=== PATIENT | female | born 1970 | race Caucasian/White ===

== ENCOUNTER → 2019-10-31 10:46 | Outpatient (BNVA) | payer BC, SELFPAY | PROVIDERS: Family Provider Nurse Practitioner Family; PCP Nurse Practitioner Family; Visit Provider Counselor Professional | DX: F33.41 Major depressive disorder, recurrent, in partial remission (principal) | CPT/HCPCS: 90834 ==

== ENCOUNTER → 2019-12-05 11:01 | Outpatient (BNVA) | payer BC, SELFPAY | PROVIDERS: Family Provider Nurse Practitioner Family; PCP Nurse Practitioner Family; Visit Provider Nurse Practitioner | DX: F41.1 Generalized anxiety disorder (principal); F33.41 Major depressive disorder, recurrent, in partial remission | CPT/HCPCS: 99214 ==

== ENCOUNTER → 2019-12-06 12:44 | Outpatient (BNVA) | payer BC, SELFPAY | PROVIDERS: Family Provider Nurse Practitioner Family; PCP Nurse Practitioner Family; Visit Provider Counselor Professional | DX: F33.1 Major depressive disorder, recurrent, moderate (principal); F41.1 Generalized anxiety disorder | CPT/HCPCS: 90832; 90834 ==

== ENCOUNTER 2019-12-19 20:00 | Outpatient (CLI) | payer BC, SELFPAY | END 2019-12-19 20:01 | disposition home or self-care (01) | LOC: SLEEP 12-20 08:48 | PROVIDERS: Family Provider Nurse Practitioner Family; PCP Nurse Practitioner Family; Visit Provider Nurse Practitioner | DX: G47.10 Hypersomnia, unspecified (principal); R53.83 Other fatigue; R06.83 Snoring | CPT/HCPCS: 95810 ==

== ENCOUNTER → 2019-12-20 07:39 | Outpatient (BNVA) | payer BC, SELFPAY | PROVIDERS: Family Provider Nurse Practitioner Family; PCP Nurse Practitioner Family; Visit Provider Counselor Professional | DX: F33.1 Major depressive disorder, recurrent, moderate (principal) | CPT/HCPCS: 90832 ==

== ENCOUNTER → 2020-01-03 09:45 | Outpatient (BNVA) | payer BC, SELFPAY | PROVIDERS: Family Provider Nurse Practitioner Family; PCP Nurse Practitioner Family; Visit Provider Counselor Professional | DX: F41.1 Generalized anxiety disorder (principal); F33.41 Major depressive disorder, recurrent, in partial remission; F32.5 Major depressive disorder, single episode, in full remission | CPT/HCPCS: 90832 ==

== ENCOUNTER → 2020-02-06 07:55 | Outpatient (BNVA) | payer BC, SELFPAY | PROVIDERS: Family Provider Nurse Practitioner Family; PCP Nurse Practitioner Family; Visit Provider Nurse Practitioner | DX: F33.41 Major depressive disorder, recurrent, in partial remission (principal); F41.1 Generalized anxiety disorder | CPT/HCPCS: 99214 ==

== ENCOUNTER → 2020-02-27 08:45 | Outpatient (BNVA) | payer BC, SELFPAY | PROVIDERS: Family Provider Nurse Practitioner Family; PCP Nurse Practitioner Family; Visit Provider Counselor Professional | DX: F33.41 Major depressive disorder, recurrent, in partial remission (principal); F41.1 Generalized anxiety disorder | CPT/HCPCS: 90834 ==

== ENCOUNTER → 2020-03-20 08:28 | Outpatient (BNVA) | payer BC, SELFPAY | PROVIDERS: Family Provider Nurse Practitioner Family; PCP Nurse Practitioner Family; Visit Provider Counselor Professional | DX: F33.41 Major depressive disorder, recurrent, in partial remission (principal); F41.1 Generalized anxiety disorder | CPT/HCPCS: 90834 ==

== ENCOUNTER → 2020-04-09 07:36 | Outpatient (BNVA) | payer BC, SELFPAY | PROVIDERS: Family Provider Nurse Practitioner Family; PCP Nurse Practitioner Family; Visit Provider Nurse Practitioner | DX: F33.41 Major depressive disorder, recurrent, in partial remission (principal); F41.1 Generalized anxiety disorder | CPT/HCPCS: 99213 ==

== ENCOUNTER → 2020-06-27 09:12 | Outpatient (BNVA) | payer BC, SELFPAY | PROVIDERS: Family Provider Nurse Practitioner Family; PCP Nurse Practitioner Family; Visit Provider Counselor Professional | DX: F33.41 Major depressive disorder, recurrent, in partial remission (principal); F41.1 Generalized anxiety disorder | CPT/HCPCS: 90834 ==

== ENCOUNTER → 2020-07-03 09:09 | Outpatient (BNVA) | payer BC, SELFPAY | PROVIDERS: Family Provider Nurse Practitioner Family; PCP Nurse Practitioner Family; Visit Provider Nurse Practitioner | DX: F33.41 Major depressive disorder, recurrent, in partial remission (principal); F41.1 Generalized anxiety disorder; Z79.899 Other long term (current) drug therapy | CPT/HCPCS: 99214 ==

== ENCOUNTER → 2020-09-25 07:54 | Outpatient (BNVA) | payer BC, SELFPAY | PROVIDERS: Family Provider Nurse Practitioner Family; PCP Nurse Practitioner Family; Visit Provider Nurse Practitioner | DX: F33.41 Major depressive disorder, recurrent, in partial remission (principal); F41.1 Generalized anxiety disorder | CPT/HCPCS: 99214 ==

== ENCOUNTER → 2020-09-28 13:38 | Outpatient (BNVA) | payer BC, SELFPAY | PROVIDERS: PCP Nurse Practitioner Family; Visit Provider Surgery | DX: Z20.828 Contact with and (suspected) exposure to other viral communicable diseases (principal) | CPT/HCPCS: 87635 ==

== ENCOUNTER 2020-10-02 06:23 | Day surgery (SDC) | payer BC, SELFPAY ==
[2020-09-28 13:37] VITALS: BMI 28.9
[2020-10-02 06:49] VITALS: BP 150/99; PULSE 63; RESP 18; TEMP 36.2; O2SAT 98
--- NOTE | 2020-10-02 06:49 | P.HP_ITS ---
Same Day Surgery H&P Indication for Procedure/HPI DATE OF PROCEDURE: October 02, 2020 CHIEF COMPLAINT/INDICATIONFOR SURGICAL PROCEDURE: Screening colonoscopy PREOP DIAGNOSIS: Screening colonoscopy PLANNED PROCEDRUE: Operation Date: 10/02/20 07:00 Proposed Procedures p Colonoscopy 69712 z12.11(Not Applicable) - Rodrigo Elam MD This is a pleasant 50 years old female patient referred to me for surveillance colonoscopy, patient did report to me that she had a colonoscopy about 3 years ago and 8 polyps were removed. Denies any bleeding per rectum or history of colon cancer or nonintentional weight loss. ROS All systems have been reviewed negative except as per the above or per problem list Medications/Allergies* Home Medications Medication Instructions Recorded Confirmed Type cholecalciferol (vitamin D3) 100 4,000 unit PO DAILY 12/05/19 09/28/20 History mcg (4,000 unit) capsule glyburide 2.5 mg tablet 2.5 mg PO BID 12/05/19 09/28/20 History metformin 500 mg tablet 500 mg PO DAILY 12/05/19 09/28/20 History atorvastatin 40 mg tablet 40 mg PO DAILY 08/28/20 09/28/20 History gabapentin 100 mg capsule 100 mg PO DAILY 09/24/20 09/28/20 History Allergies/Adverse Reactions Allergy/AdvReac Type Severity Reaction Status Date / Time amoxicillin Allergy Unknown Verified 10/02/20 06:50 cefuroxime Allergy Unknown Verified 10/02/20 06:50 codeine Allergy Unknown Verified 10/02/20 06:50 erythromycin base Allergy Unknown Verified 10/02/20 06:50 Penicillins Allergy Unknown Verified 10/02/20 06:50 sulfamethoxazole Allergy Unknown Verified 10/02/20 06:50 [From Bactrim] trimethoprim [From Bactrim] Allergy Unknown Verified 10/02/20 06:50 Pertinent History/Comorbid Conditions* Medical History (Updated 07/03/20 @ 13:58 by María Naranjo [facility]) Generalized anxiety disorder Major depressive disorder, recurrent, in partial remission On high dose antipsychotic drug therapy Social History Smoking and tobacco status: current every day smoker cigarettes Packs smoked per day: 1 Smoking risk assessment/counseling performed?: Yes Tobacco counseling given: counseling >3 minutes Pertinent Exam Findings alert, oriented x 3, clear to auscultation bilaterally and procedure specific exam findings (Abdominal examination nontender nondistended soft) Recommendations Surgery/Procedure today (Colonoscopy with possible biopsy and possible polypectomy) Coding Level of Care Code Acute Veterinary X Ray Operator for Miguel Dasilva
[2020-10-02] MEDS: sodium chloride 0.9% 1,000 ML 30 ML IV (07:00)
--- NOTE | 2020-10-02 07:03 | ANES.PREANE2 ---
Pre-Anesthetic Assessment Pre-Anesthetic Assessment: Height/Weight: Height 1.52 m Weight 67.132 kg Temp Pulse Resp BP Pulse Ox 97.2 F L 63 18 150/99 98 10/02/20 06:49 10/02/20 06:49 10/02/20 06:49 10/02/20 06:49 10/02/20 06:49 Preop Diagnosis: Screening colonoscopy Proposed Procedure: Operation Date: 10/02/20 07:00 Proposed Procedures p Colonoscopy 14066 z12.11(Not Applicable) - Rodrigo Elam MD Familial anesthetic complications: denies Was Beta Sabine taken within 24 hours: N/A Last intake: Intake Last Liquid Date 10/01/20 Last Liquid Time 22:30 Last Solid Date 09/30/20 Last Solid Time 20:00 Last Intake: 01:01 Social: Social History: Tobacco and No alcohol Packs per day: 1.5 Exam: Pre-Anes Outpt Exam: alert, oriented x 3 and clear to auscultation bilaterally Airway: Submandibular: WNL Cervical ROM: WNL MP: 2 Dentition: Other (endentulous ) Pulmonary: Pulmonary: Asthma and COPD CV/HEM: CV/HEM: None reported : : None reported Hepatic: Hepatic: Hepatitis and None reported GI: GI: None reported Metabolic: Metabolic: DM (NIDDM) Musc/skel: Musc/skel: None reported Neuropsych: Neuropsych: Anxiety and Depression Anesthetic Plan: ASA status: 3 Anesthesia: Anesthesia Evaluation and MAC Meds/Allergies Current Medications: Current Medications Generic Name Dose Route Start Last Admin Trade Name Freq PRN Reason Stop Dose Admin Sodium Chloride 1,000 mls @ 30 ml s/hr 10/02/20 07:00 10/02/20 07:00 Sodium Chloride 0.9% IV 30 mls/hr .Q24H PÉREZ Administration PFSH Anesthesia PFSH: Medical History (Updated 07/03/20 @ 13:58 by ARASH Castillo) Generalized anxiety disorder Major depressive disorder, recurrent, in partial remission On high dose antipsychotic drug therapy Social History (Updated 12/05/19 @ 11:10 by Elizabeth Tenorio LPN) Smoking and tobacco status: current every day smoker cigarettes Packs smoked per day: 1 Smoking risk assessment/counseling performed?: Yes Tobacco counseling given: counseling >3 minutes Data Anesthesia Cardiac Studies: No Data to Display
[2020-10-02 07:51] VITALS: BP 110/72; PULSE 67; RESP 18; TEMP 36.1; O2SAT 97
--- NOTE | 2020-10-02 07:52 | ANE.PACU2 ---
Inpatient post-anesthesia follow up: Airway intact: Yes Vital signs: Temperature 97.2 F Pulse Rate 63 Respiratory Rate 18 Blood Pressure 150/99 Pulse Oximetry 98 Oxygen Delivery Me thod Room Air Oxygen Flow Rate Fraction of Inspir ed Oxygen Hydration adequate: Yes Nausea and vomiting: No Pain level: 0 Mental status: Baseline
[2020-10-02 08:10] VITALS: BP 129/79; PULSE 65; RESP 18; O2SAT 97
== END 2020-10-02 08:23 | disposition home or self-care (01) ==
PROVIDERS: PCP Nurse Practitioner Family; Visit Provider Surgery
PROC: 0DJD8ZZ Inspection of Lower Intestinal Tract, Via Natural or Artificial Opening Endoscopic (ICD-10-PCS; CPT 45378; principal; 2020-10-02 07:00)
DX: Z12.11 Encounter for screening for malignant neoplasm of colon (principal); D12.2 Benign neoplasm of ascending colon; D12.5 Benign neoplasm of sigmoid colon; J44.9 Chronic obstructive pulmonary disease, unspecified; E11.9 Type 2 diabetes mellitus without complications; F17.210 Nicotine dependence, cigarettes, uncomplicated; Z79.84 Long term (current) use of oral hypoglycemic drugs; F41.9 Anxiety disorder, unspecified; F33.9 Major depressive disorder, recurrent, unspecified
CPT/HCPCS: 12345; 45380; 88305; J2704; J7030

== ENCOUNTER → 2020-11-27 09:34 | Outpatient (BNVA) | payer BC, SELFPAY | PROVIDERS: PCP Nurse Practitioner Family; Visit Provider Nurse Practitioner | DX: F33.41 Major depressive disorder, recurrent, in partial remission (principal); F41.1 Generalized anxiety disorder | CPT/HCPCS: 99214 ==

== ENCOUNTER → 2021-01-08 13:52 | Outpatient (BNVA) | payer BC, SELFPAY | PROVIDERS: Visit Provider Surgery | DX: K21.9 Gastro-esophageal reflux disease without esophagitis (principal); Z20.822 Contact with and (suspected) exposure to COVID-19 | CPT/HCPCS: 87635 ==

== ENCOUNTER 2021-01-14 06:03 | Day surgery (SDC) | payer BC, SELFPAY ==
[2021-01-10 13:12] VITALS: BMI 28.5
[2021-01-14 06:20] VITALS: BP 136/88; PULSE 61; RESP 16; TEMP 36.5; O2SAT 98
--- NOTE | 2021-01-14 06:23 | W.PM.OPSUD ---
Surgery/Procedure H&P Update DATE OF PROCEDURE: January 14, 2021 DATE H&P PERFORMED: 12/26/20 H&P UPDATE INFORMATION: I have reviewed H&P completed within last 30 days, I have examined patient prior to procedure and No changes to prior documentation PREOP DIAGNOSIS: Acid reflux PRIMARY INDICATION FOR PROCEDURE: The same PLANNED PROCEDURE: Operation Date: 01/14/21 07:00 Proposed Procedures p EGD 43628 K21.9(Not Applicable) - Rodrigo Elam MD
[2021-01-14 06:37] LABS: Glucose Point of Care 94 mg/dL (70-110)
[2021-01-14] MEDS: sodium chloride 0.9% 1,000 ML 30 ML IV (06:38)
--- NOTE | 2021-01-14 06:39 | ANES.PREANE2 ---
Pre-Anesthetic Assessment Pre-Anesthetic Assessment: Height/Weight: Height 1.52 m Weight 66.224 kg Temp Pulse Resp BP Pulse Ox 97.7 F 61 16 136/88 98 01/14/21 06:20 01/14/21 06:20 01/14/21 06:20 01/14/21 06:20 01/14/21 06:20 Preop Diagnosis: Acid reflux Proposed Procedure: Operation Date: 01/14/21 07:00 Proposed Procedures p EGD 38352 K21.9(Not Applicable) - Rodrigo Elam MD Was Beta Sabine taken within 24 hours: N/A Was Clonidine taken within 24 hours: N/A Last intake: Intake Last Liquid Date 01/14/21 Last Liquid Time 01:00 Last Solid Date 01/13/21 Last Solid Time 20:00 Social: Social History: Tobacco Exam: Pre-Anes Outpt Exam: alert, oriented x 3, clear to auscultation bilaterally and regular rate & rhythm Airway: Submandibular: WNL Cervical ROM: WNL MP: 2 Dentition: False History/ROS: No significant history except as noted Pulmonary: Pulmonary: Asthma and COPD CV/HEM: CV/HEM: HTN : : None reported Hepatic: Hepatic: Hepatitis GI: GI: GERD and Hiatus hernia Metabolic: Metabolic: DM and Hyperlipidemia Musc/skel: Musc/skel: None reported Neuropsych: Neuropsych: Anxiety and Depression Anesthetic Plan: ASA status: 3 Anesthesia: Anesthesia Evaluation and MAC Risk of > 500 ml blood loss (7ml/kg in children): No Meds/Allergies Current Medications: Current Medications Generic Name Dose Route Start Last Admin Trade Name Freq PRN Reason Stop Dose Admin Sodium Chloride 1,000 mls @ 30 ml s/hr 01/14/21 06:15 01/14/21 06:38 Sodium Chloride 0.9% IV 30 mls/hr .Q24H PÉREZ Administration PFSH Anesthesia PFSH: Medical History Generalized anxiety disorder Major depressive disorder, recurrent, in partial remission On high dose antipsychotic drug therapy Social History Smoking and tobacco status: current every day smoker cigarettes Packs smoked per day: 1 Smoking risk assessment/counseling performed?: Yes Tobacco counseling given: counseling >3 minutes Data Anesthesia Other Labs: Laboratory Results - last 48 hr 01/14/21 06:35 POC Glucose 94 Cardiac Studies: No Data to Display
[2021-01-14 07:01] VITALS: BP 114/79; PULSE 68; RESP 18; TEMP 36.2; O2SAT 95
[2021-01-14 07:17] VITALS: BP 128/91; PULSE 70; RESP 18; O2SAT 93
--- NOTE | 2021-01-14 18:55 | ANE.PACU2 ---
Inpatient post-anesthesia follow up: Airway intact: Yes Vital signs: Temperature 97.2 F Pulse Rate 70 Respiratory Rate 18 Blood Pressure 128/91 Pulse Oximetry 93 Oxygen Delivery Me thod Room Air Oxygen Flow Rate Fraction of Inspir ed Oxygen Hydration adequate: Yes Nausea and vomiting: No Pain level: 1 Mental status: Baseline
[2021-01-15 06:19] LABS: H. Pylori / CLO Test Negative
== END 2021-01-14 07:32 | disposition home or self-care (01) ==
PROVIDERS: Visit Provider Surgery
PROC: 0DJ08ZZ Inspection of Upper Intestinal Tract, Via Natural or Artificial Opening Endoscopic (ICD-10-PCS; CPT 43235; principal; 2021-01-14 07:00)
DX: K21.00 Gastro-esophageal reflux disease with esophagitis, without bleeding (principal); K29.70 Gastritis, unspecified, without bleeding; K29.80 Duodenitis without bleeding; F17.210 Nicotine dependence, cigarettes, uncomplicated; J44.9 Chronic obstructive pulmonary disease, unspecified; I10 Essential (primary) hypertension; E11.9 Type 2 diabetes mellitus without complications; E78.5 Hyperlipidemia, unspecified; F41.9 Anxiety disorder, unspecified; F32.9 Major depressive disorder, single episode, unspecified; Z79.84 Long term (current) use of oral hypoglycemic drugs
CPT/HCPCS: 36416; 43239; 82962; 87077; 96360; J7030

== ENCOUNTER 2021-02-19 12:49 | Outpatient (CLI) | payer BC, SELFPAY ==
--- NOTE | 2021-02-19 14:30 | CT_ITS ---
WS: [id number] Exam: CT abdomen pelvis w con* [id number] Date/Time of Exam: 02/19/2021 1:10 PM Reason For Exam: R19.00 - Intra-abdominal and pelvic swelling, mass and lump, unspecified site DLP: 1133.[address] scans at [facility] use at least one of these dose optimization techniques: automat ed exposure control; mA and/or kV adjustment per patient size (includes targeted exams where dose is matched to clinical indication); or iterative reconstruction. 100 mL of non-ionic contrast are admini stered intravenously. Mild plaque atelectasis in the right base. Lower lung zones are otherwise clear. Mild hepatic steatos is. The spleen, stomach and pancreas appear normal. The gallbladder is surgically absent. The abdomin al aorta is normal in caliber. The portal vein and IVC are patent. Normal adrenal glands and kidneys. Small bowel loops are normal in caliber. No free air. No lymphadenopathy. No significant large bowel abnormality. No sign of acute appendix. Urinary bladder is intact. No mass or adenopathy in the pelv is. Uterus and ovaries are not identified and may be surgically absent. No destructive bone lesions. Small fat filled bilateral inguinal hernias. CT/CT abdomen pelvis w con* [id number] IMPRESSION: 1. No mass, lymphadenopathy or acute finding. 2. Small fat filled bilateral inguinal hernias.
[2021-02-19] MEDS: iohexol 300 mg/mL 100 mL Btl IV (14:36)
[2021-02-19] MEDS: iohexol 300 mg/mL 50 mL Btl PO (14:37)
== END 2021-02-19 12:50 | disposition home or self-care (01) ==
PROVIDERS: Visit Provider Surgery
DX: R19.00 Intra-abdominal and pelvic swelling, mass and lump, unspecified site (principal); K40.20 Bilateral inguinal hernia, without obstruction or gangrene, not specified as recurrent
CPT/HCPCS: 74177; Q9967

== ENCOUNTER 2021-03-10 17:27 | Emergency (ER) | payer BC, SELFPAY ==
[2021-03-10 17:36] VITALS: BP 130/69; PULSE 70; RESP 17; TEMP 36.5; O2SAT 97; BMI 28.5
--- NOTE | 2021-03-10 17:58 | W.ED.ABDPA2 ---
HPI - Abdominal Pain General: Chief Complaint: Abdominal Pain Stated Complaint: LOWER ABD PAIN Time Seen by Provider: 03/10/21 17:51 History of Present Illness: HPI narrative: Patient states she is having some tenderness across the lower abdomen where she has [address] Fields said he is going repair next week or 2. She denies any diarrhea nausea and vomiting fever chills or other related problems. She said she was not given any pain medicine and she feels that would help. MD elicited complaint: other (Hernia pain) Onset (ago): day(s) Pain Consistency: intermittent Location: Suprapubic Severity: mild Quality: aching Radiation: none Migration to: no migration Exacerbating factors: nothing Relieving factors: nothing Associated Symptoms: Reports no associated symptoms; Denies chills, fever(s), nausea and vomiting Review of Systems Const: Denies: fever(s), chills or body aches Eyes: Denies: change in vision or blurry vision ENMT: Denies: throat pain or nasal congestion Card: Denies: chest pain or dyspnea on exertion Resp: Denies: dyspnea, productive cough or non-productive cough GI: Reports: abdominal pain (Hernias are hurting); Denies: nausea or vomiting Musc: Denies: extremity pain Skin/Breast: Denies: rash Neuro: Denies: headache(s) Psych: Denies: anxiety or depression Seferino/Lymph: Denies: easy bruising PFSH ED PFSH: Medical History Gastritis and duodenitis Generalized anxiety disorder Major depressive disorder, recurrent, in partial remission On high dose antipsychotic drug therapy Social History Smoking and tobacco status: current every day smoker cigarettes Packs smoked per day: 1 Smoking risk assessment/counseling performed?: Yes Tobacco counseling given: counseling >3 minutes Physical Exam Const: COMMON NORMALS: no acute distress, average body habitus and patient oriented x3 HENMT: COMMON NORMALS: normocephalic HEAD & SCALP: normal to inspection and normocephalic FACE & SINUS: normal facial exam Eye: COMMON NORMALS: conjunctivae normal GENERAL EYE: appearance normal, both eyes and all related structures CONJUNCTIVA: Yes conjunctivae normal Neck/C-Spine: COMMON NORMALS: no JVD Chest: COMMONS NORMALS: normal inspection of the chest Resp: COMMON NORMALS: normal respiratory effort and clear to auscultation bilaterally AUSCULTATION: clear to auscultation bilaterally Cardio: COMMON NORMALS: no JVD, regular rate and regular rhythm RATE: regular rate RHYTHM: regular rhythm GI: INSPECTION: Yes normal to inspection and Yes other (I did not feel any hernias but she does have abdominal wall tenderness down) AUSCULTATION: Yes normoactive bowel sounds PALPATION: Yes Tenderness to palpation present (GI) (Suprapubic area where she says hernias are) Details: other (Slight redness of the matt) Extremity: COMMON NORMALS: normal to inspection and full ROM Neuro: COMMON NORMALS: patient oriented x3 Course Vital Signs: Vital signs: Vital Signs Temperature 97.7 F 03/10/21 17:36 Pulse Rate 72 03/10/21 18:38 Respiratory Rate 17 03/10/21 17:36 Blood Pressure 118/72 03/10/21 18:38 Pulse Oximetry 95 03/10/21 18:38 MDM - Abdominal Pain MDM Narrative: Medical decision making narrative: Abdomen with tenderness superficially along the abdominal wall. No hernias were felt by me. Bowel sounds are normal no fever erythema or or other related problems bowels are working fine. Most likely abdominal wall strain or pain related to the 3 urine is she says she has she is to follow-up Dr. Fields. Her hernias if they are there did not Appear incarcerated Discharge Plan Discharge Patient Disposition: Home Clinical Impression: Strain of abdominal muscle Qualifiers: Encounter type: initial encounter Qualified Code(s): S39.011A - Strain of muscle, fascia and tendon of abdomen, initial encounter Condition: Stable Prescriptions: New tramadol 50 mg tablet 50 mg PO TID PRN (Reason: pain) Qty: 14 RF: 0 No Action cholecalciferol (vitamin D3) 4,000 unit capsule 4,000 unit PO DAILY RF: 0 metformin 500 mg tablet 500 mg PO DAILY RF: 0 glyburide 2.5 mg tablet 2.5 mg PO BID RF: 0 gabapentin 100 mg capsule 100 mg PO DAILY RF: 0 atorvastatin 40 mg tablet 40 mg PO DAILY RF: 0 fluoxetine [Prozac] 40 mg capsule 80 mg PO DAILY Qty: 60 RF: 2 buspirone 15 mg tablet 15 mg PO TID Qty: 90 RF: 2 olanzapine 10 mg tablet 5 mg PO .HS RF: 0 bupropion HCl 75 mg tablet 25 mg PO DAILY RF: 0 Protonix 40 mg tablet,delayed release (DR/EC) 40 mg PO DAILY 30 Days Qty: 30 RF: 2 Discharge Orders: Discharge ED (Routine); Ordered 03/10/21 Ordered By: Marcos Luo Referrals: Alma Paulino [Primary Care Provider] - Discharge Diet: As Directed Discharge Activity: Resume usual activity Patient Instructions: Opioid Safety Activity Restrictions/Additional Instructions: Follow-up with medical provider as directed. Take medications as prescribed. Return to the ER or your medical provider if condition worsens. Please read and understand discharge instructions. If any questions ask please. Increase fiber in diet. Follow-up surgeon as directed. Coding Level of Care Code ED Java Golden Gate Developer for Miguel Dasilva Exam Comprehensive
[2021-03-10 18:34] VITALS: BP 118/72; PULSE 72; O2SAT 95
[2021-03-10 18:38] VITALS: BP 118/72; PULSE 72; O2SAT 95
== END 2021-03-10 18:39 | disposition home or self-care (01) ==
PROVIDERS: Emergency Provider Nurse Practitioner Family; PCP Nurse Practitioner Family
DX: S39.011A Strain of muscle, fascia and tendon of abdomen, initial encounter (principal); Z79.84 Long term (current) use of oral hypoglycemic drugs; F17.210 Nicotine dependence, cigarettes, uncomplicated; X58.XXXA Exposure to other specified factors, initial encounter
CPT/HCPCS: 99282

== ENCOUNTER 2021-03-26 08:49 | Day surgery (SDC) | payer BC, SELFPAY ==
[2021-03-22 16:32] VITALS: BMI 28.3
[2021-03-23 13:42] LABS: Quest SARS-CoV-2 RNA NOT DETECTED (NOT DETECTED)
[2021-03-26] VITALS (7 sets, daily range): BP systolic 103–122; BP diastolic 54–74; PULSE 66–86; RESP 12–22; TEMP 36.3–36.5; O2SAT 94–100
[2021-03-26] MEDS: acetaminophen 1,000 MG/100 ML PIGGYBACK 400 MG IV (09:20)
[2021-03-26 09:25] LABS: Glucose Point of Care 135 mg/dL (70-110)
[2021-03-26] MEDS: sodium chloride 0.9% 1,000 ML 30 ML IV (09:26)
--- NOTE | 2021-03-26 10:46 | ANES.PREANE2 ---
Pre-Anesthetic Assessment Pre-Anesthetic Assessment: Height/Weight: Height 1.52 m Weight 65.771 kg Preop Diagnosis: Bilateral inguinal hernias Proposed Procedure: Operation Date: 03/26/21 10:10 Proposed Procedures p Laparoscopic poss Open Inguinal Hernia Repair w/Mesh 24389 K40.20(Bilateral) - Rodrigo Elam MD Was Beta Sabine taken within 24 hours: N/A Was Clonidine taken within 24 hours: N/A Last intake: Intake Last Liquid Date 03/25/21 Last Liquid Time 11:30 Last Solid Date 03/25/21 Last Solid Time 17:00 Social: Social History: Tobacco (quit 2 wks ago) and No alcohol Exam: Pre-Anes Outpt Exam: alert, oriented x 3 and regular rate & rhythm Airway: Submandibular: WNL Cervical ROM: WNL MP: 2 Dentition: False Pulmonary: Pulmonary: COPD GI: GI: GERD Metabolic: Metabolic: DM Neuropsych: Neuropsych: Anxiety and Depression Anesthetic Plan: ASA status: 3 Anesthesia: General Risk of > 500 ml blood loss (7ml/kg in children): No Meds/Allergies Current Medications: Current Medications Generic Name Dose Route Start Last Admin Trade Name Freq PRN Reason Stop Dose Admin Sodium Chloride 1,000 mls @ 30 ml s/hr 03/26/21 09:15 03/26/21 09:26 Sodium Chloride 0.9% IV 03/27/21 09:14 30 mls/hr .Q24H PÉREZ Administration PFSH Anesthesia PFSH: Medical History Gastritis and duodenitis Generalized anxiety disorder Major depressive disorder, recurrent, in partial remission On high dose antipsychotic drug therapy Social History Smoking and tobacco status: current every day smoker cigarettes Packs smoked per day: 1 Smoking risk assessment/counseling performed?: Yes Tobacco counseling given: counseling >3 minutes Data Anesthesia Other Labs: Laboratory Results - last 48 hr 03/26/21 09:22 POC Glucose 135 H Cardiac Studies: No Data to Display
--- NOTE | 2021-03-26 12:06 | W.PM.OPSUD ---
Surgery/Procedure H&P Update DATE OF PROCEDURE: March 26, 2021 DATE H&P PERFORMED: 03/13/21 H&P UPDATE INFORMATION: I have reviewed H&P completed within last 30 days, I have examined patient prior to procedure and No changes to prior documentation PREOP DIAGNOSIS: Recurrent Bilateral inguinal hernias PRIMARY INDICATION FOR PROCEDURE: The same PLANNED PROCEDURE: Operation Date: 03/26/21 10:10 Proposed Procedures p Laparoscopic poss Open Inguinal Hernia Repair w/Mesh 13437 K40.20(Bilateral) - Rodrigo Elam MD
[2021-03-26] MEDS: clindamycin 600 MG/50 ML PREMIX 100 MG IV (12:16)
--- NOTE | 2021-03-26 13:46 | P.OP_ITS ---
Operative Report Date of procedure: March 26, 2021 Pre-op Diagnosis: Recurrent Bilateral inguinal hernias Post-op diagnosis: other (Extensive intra-abdominal adhesions and presence of right small inguinal hernia) Procedure Done: Laparoscopic converted to right open inguinal hernia repair with mesh placement in the form of a cone Implants: Polypropylene cone plug placement located at the medial aspect of the inguinal canal Specimens removed/disposition: Lipoma of the cord Surgeon: Rodrigo Elam Paintings Conservator: Surgical kevon Johnson Circulating nurse Nubia Anesthesia: General (CULLEN Wells and CORIE Scott) Estimated blood loss (mL): 10 Condition: stable Disposition: same day Brief History: Patient presents with symptomatic bilateral groin pain and was found to have on the CT scan recurrent bilateral inguinal hernias right larger than the left. Full H&P and informed consent per chart Procedure: Patient was identified in the holding area ,patient was taken to the operating room where he was placed in supine position, with both arms were tucked, antibiotic was given with induction, endotracheal tube was placed per anesthesia, Wiley catheter was inserted by the circulating nurse and revealed clear urine, prep and drape of the abdomen was done under the usual sterile technique. Time-out was done verifying the patient's name/date of /planned procedure destination after the procedure, all were in agreement. SCDs confirmed to be functioning, preoperative antibiotics administered per protocol, and beta meli protocol was confirmed. A vertical skin incision of 1.2 cm was made with 11 blade knife through the supraumbilical,incision was carried down to the subcutaneous tissue and deepened to identify the anterior fascia, two stay sutures were applied to the fascia, and safe entrance to the abdominal cavity was achieved, a Horton trocar te chnique safe entry to the abdominal cavity was achieved verified by using 10 mm zero degree laparoscopy, switched to a 30 degrees scope,low flow followed by a higher flow of CO2 gas up to 15 mmHg. At this point extensive intra-abdominal omental adhesions were appreciated and there was only small window to appreciate right small inguinal hernia. At this point I decided to abort and pay attention to open approach of the right inguinal hernia, the fascial defect was closed after gas deflation under direct visualization using interrupted [id number] PDS. Following that a right groin incision 1-1/2 finger above the inguinal ligament towards the pubic tubercle, used 15 blade knife skin incision , continued to dissect using Bovie to subcutaneous, Elysia's fascia down to the external obliqu e aponeurosis, patient had extensive scarring of the right groin area and the anatomy was completely distorted after appropriate dissection I was able to identify a large sized lipoma of the cord that was excised after appropriate hemostasis leaving behind a defect less than an in diameter located at the medial aspect which I managed to apply a Plug cone medium size made of polypropylene and using multiple 2-0 silk to stabilize it. Otherwise the lateral domain of the inguinal hernia was scarred down and the previous mesh has been already in place without evidence of infection. Copious irrigation was done following by closure of the external oblique aponeurosis using 2/0 continuous Vicryl sutures then closure of the subcutaneous and deep subdermal by 2-0 Vicryl and 3-0 Vicryl respectively then skin facundo were applied to the right groin incision and supraumbilical incision as well. Dry dressing was applied. Wiley catheter was discontinued at the end of the procedure. Counts of instruments, sponges and needles were completed at the end of the procedure. Patient tolerated the procedure well and was taken to the recovery area after extubation I was present for the whole entire procedure
--- NOTE | 2021-03-26 14:10 | P.PCN_ITS ---
PACU note PACU note: VSS, Good respiratory effort, report to ENGRAVER PANTOGRAPH Post-Anesthesia Exam: awake
--- NOTE | 2021-03-26 14:10 | PM.PACU ---
PACU note PACU note: VSS, Good respiratory effort, report to NETWORK SOLUTIONS ARCHITECT Post-Anesthesia Exam: awake
--- NOTE | 2021-03-26 14:16 | SUR.PHASEI ---
PT SLEEPS ,DOES OPEN EYES BUT DOES NOT SPEAK, ORAL AIRWAY OUT ON ARRIVAL, GOOD RESP EFFORT NOTED VSS.ABS SOFT.
[2021-03-26] MEDS: HYDROcodone-acetaminophen 5-325 mg Tablet 1 TAB PO (14:50)
--- NOTE | 2021-03-26 17:01 | ANE.PACU2 ---
Inpatient post-anesthesia follow up: Airway intact: Yes Vital signs: Temperature 97.7 F Pulse Rate 71 Respiratory Rate 18 Blood Pressure 122/68 Pulse Oximetry 98 Oxygen Delivery Me thod Room Air Oxygen Flow Rate 8 Fraction of Inspir ed Oxygen Hydration adequate: Yes Nausea and vomiting: No Pain level: 2 Mental status: Baseline
== END 2021-03-26 15:21 | disposition home or self-care (01) ==
PROVIDERS: PCP Nurse Practitioner Family; Visit Provider Surgery
PROC: (CPT 49650; principal; 2021-03-26 10:10)
PROC: (CPT 49650; 2021-03-26 10:10)
DX: K40.21 Bilateral inguinal hernia, without obstruction or gangrene, recurrent (principal); K66.0 Peritoneal adhesions (postprocedural) (postinfection); Z53.31 Laparoscopic surgical procedure converted to open procedure; Z87.891 Personal history of nicotine dependence; J44.9 Chronic obstructive pulmonary disease, unspecified; K21.9 Gastro-esophageal reflux disease without esophagitis; E11.9 Type 2 diabetes mellitus without complications; F41.9 Anxiety disorder, unspecified; F32.9 Major depressive disorder, single episode, unspecified
CPT/HCPCS: 49650; 36416; 51702; 82962; 87635; 88304; 96365; C1781; C9290; J1100; J1170; J2370; J2405; J2704; J2710; J3490; J7030

== ENCOUNTER → 2021-06-27 08:15 | Outpatient (BNVA) | payer BC, SELFPAY | PROVIDERS: PCP Nurse Practitioner Family; Visit Provider Surgery | DX: K40.91 Unilateral inguinal hernia, without obstruction or gangrene, recurrent (principal) | CPT/HCPCS: 87635 ==

== ENCOUNTER 2021-07-02 09:18 | Day surgery (SDC) | payer BC, SELFPAY ==
[2021-06-28 14:34] VITALS: BMI 28.5
[2021-07-02] VITALS (9 sets, daily range): BP systolic 122–146; BP diastolic 66–88; PULSE 58–79; RESP 16–22; TEMP 36.2–36.5; O2SAT 91–97
--- NOTE | 2021-07-02 10:05 | ANES.PREANE2 ---
Pre-Anesthetic Assessment Pre-Anesthetic Assessment: Height/Weight: Height 1.52 m Weight 66.224 kg Temp Pulse Resp BP Pulse Ox 97.7 F 58 L 16 146/88 97 07/02/21 09:45 07/02/21 09:45 07/02/21 09:45 07/02/21 09:45 07/02/21 09:45 Preop Diagnosis: Left inguinal hernia recurrent Proposed Procedure: Operation Date: 07/02/21 11:05 Proposed Procedures p Open Inguinal Hernia Repair w/ Mesh 62064 K40.91(Not Applicable) - Rodrigo Elam MD Familial anesthetic complications: None Was Beta Sabine taken within 24 hours: N/A Was Clonidine taken within 24 hours: N/A Last intake: NPO > 8 hrs Social: Social History: No alcohol and No tobacco Comment: former smoker Exam: Pre-Anes Outpt Exam: alert, oriented x 3, clear to auscultation bilaterally and regular rate & rhythm Airway: Cervical ROM: WNL MP: 2 Dentition: False Pulmonary: Pulmonary: COPD GI: GI: GERD Metabolic: Metabolic: DM and Hyperlipidemia Neuropsych: Neuropsych: Anxiety and Depression Anesthetic Plan: ASA status: 3 Anesthesia: General Risk of > 500 ml blood loss (7ml/kg in children): No PFSH Anesthesia PFSH: Medical History Bilateral inguinal hernia Gastritis and duodenitis Generalized anxiety disorder Major depressive disorder, recurrent, in partial remission On high dose antipsychotic drug therapy Social History Smoking and tobacco status: never smoked Smoking risk assessment/counseling performed?: Yes Tobacco counseling given: counseling >3 minutes Data Anesthesia Cardiac Studies: No Data to Display
--- NOTE | 2021-07-02 10:34 | W.PM.OPSUD ---
Surgery/Procedure H&P Update DATE OF PROCEDURE: July 02, 2021 DATE H&P PERFORMED: 06/10/21 H&P UPDATE INFORMATION: I have reviewed H&P completed within last 30 days, I have examined patient prior to procedure and No changes to prior documentation PREOP DIAGNOSIS: Left inguinal hernia recurrent PRIMARY INDICATION FOR PROCEDURE: The same PLANNED PROCEDURE: Operation Date: 07/02/21 11:05 Proposed Procedures p Open Inguinal Hernia Repair w/ Mesh [id number] K40.91(Not Applicable) - Rodrigo Elam MD
[2021-07-02 10:50] LABS: Glucose Point of Care 95 mg/dL (70-110)
[2021-07-02] MEDS: sodium chloride 0.9% 1,000 ML 30 ML IV (10:55)
[2021-07-02] MEDS: clindamycin 600 MG/50 ML PREMIX 100 MG IV (11:00)
[2021-07-02] MEDS: acetaminophen 1,000 MG/100 ML PIGGYBACK 400 MG IV (11:00)
[2021-07-02] MEDS: lidocaine 2% INJ 20 mL INJECTION (11:31)
--- NOTE | 2021-07-02 12:08 | PM.OP ---
Operative Report Date of procedure: July 02, 2021 Pre-op Diagnosis: Left inguinal hernia recurrent Post-op diagnosis: same Procedure Done: 1-Open left inguinal hernia repair with mesh placement 2-Excision of left inguinal canal lipoma protruding at the deep inguinal ring Implants: Polypropylene mesh sheet and a cone large size Specimens removed/disposition: Lipoma of the left inguinal canal Surgeon: Rodrigo [place]am [place] Captain: Surgical techcarrie Carter.Bill Circulating nurse Geoff Anesthesia: General (GETA insulation professional Neena) Estimated blood loss (mL): 10 IV fluids (mL): 500 Condition: stable Disposition: same day Brief History: Symptomatic left groin hernia. Procedure: After identifying the patient in the holding area and the left groin was marked by me in the presence of female desktop publishing specialist nursing staff.Patient was transferred to the OR where she was placed in supine position intubated by anesthesia provider. Prep and drape was done of the lower abdomen and left groin under the usual sterile technique. Time-out was done verifying the patient's name/date of /planned procedure destination after the procedure, all were in agreement. SCDs confirmed to be functioning, preoperative antibiotics administered per protocol, and beta meli protocol was confirmed. Following that a left groin incision 1-1/2 finger above the inguinal ligament towards the pubic tubercle, used 15 blade knife skin incision , continued to dissect using Bovie to subcutaneous, Elysia's fascia down to the external oblique aponeurosis, patient had extensive scarring of the left groin area and the anatomy was completely distorted after appropriate dissection I was able to identify a large sized lipoma of the cord, transfixing suture was used after application of right angle forceps for appropriate hemostasis ,that was excised after appropriate hemostasis leaving behind a defect less than an in diameter located at the medial aspect which I managed to apply a Plug cone large size made of polypropylene and using multiple 2-0 silk to stabilize it. I elected at this point to place an additional sheath of polypropylene and create medially to the pubic the pubic tubercle and the underlying surface of the inguinal ligament and transversus abdominis muscle. Copious irrigation was done following by closure of the external oblique aponeurosis using 2/0 continuous Vicryl sutures then closure of the subcutaneous and deep subdermal by 2-0 Vicryl and 3-0 Vicryl respectively then skin facundo were applied to the right groin incision and supraumbilical incision as well. Dry dressing was applied. Counts of instruments, sponges and needles were completed at the end of the procedure. Patient tolerated the procedure well and was taken to the recovery area after extubation I was present for the whole entire procedure
[2021-07-02] MEDS: meperidine 50 mg/mL INJ 12.5 MG IVP (12:40)
--- NOTE | 2021-07-02 15:38 | ANE.PACU2 ---
Inpatient post-anesthesia follow up: Airway intact: Yes Vital signs: Temperature 97.1 F Pulse Rate 66 Respiratory Rate 18 Blood Pressure 144/80 Pulse Oximetry 93 Oxygen Delivery Me thod Room Air Oxygen Flow Rate 2 Fraction of Inspir ed Oxygen Hydration adequate: Yes Nausea and vomiting: No Pain level: 2 Mental status: Baseline
== END 2021-07-02 14:00 | disposition home or self-care (01) ==
PROVIDERS: PCP Nurse Practitioner Family; Visit Provider Surgery
PROC: (CPT 11400; principal; 2021-07-02 10:55)
DX: K40.91 Unilateral inguinal hernia, without obstruction or gangrene, recurrent (principal); D17.79 Benign lipomatous neoplasm of other sites; J44.9 Chronic obstructive pulmonary disease, unspecified; K21.9 Gastro-esophageal reflux disease without esophagitis; E11.9 Type 2 diabetes mellitus without complications; E78.5 Hyperlipidemia, unspecified; F41.9 Anxiety disorder, unspecified; F32.9 Major depressive disorder, single episode, unspecified
CPT/HCPCS: 11400; 49520; 36416; 82962; 88304; C1781; J1100; J2175; J2405; J2704; J2710; J3010; J3490; J7030

== ENCOUNTER 2022-01-22 08:34 | Outpatient (CLI) | payer BC, SELFPAY ==
--- NOTE | 2022-01-22 08:41 | MM_ITS ---
WS: [id number] BILATERAL SCREENING 3D TOMOSYNTHESIS DIGITAL MAMMOGRAM WITH CAD HISTORY: SCREENING COMPARISON: 08/21/2020 and 01/18/2019 Bilateral CC and MLO views submitted. Computer aided detection analyzed. Breast composition: There are scattered areas of fibroglandular density. No suspicious masses, microc alcifications or architectural distortion. Mild asymmetries in the anterior aspect of each breast. Sl ightly greater asymmetry involving the LEFT breast. No distortion or mass. MM/[place] [id number] IMPRESSION: BI-RADS: 2-Benign FOLLOW UP: 1 Year Follow-up
== END 2022-01-22 08:35 | disposition home or self-care (01) ==
LOC: RADSHAW 08:37
PROVIDERS: PCP Nurse Practitioner Family; Visit Provider Nurse Practitioner Family
DX: Z12.31 Encounter for screening mammogram for malignant neoplasm of breast (principal)
CPT/HCPCS: 77063; 77067

== ENCOUNTER 2023-03-11 09:32 | Outpatient (CLI) | payer OTHER, BC, SELFPAY ==
--- NOTE | 2023-03-11 09:52 | MM_ITS ---
WS: [id number] BILATERAL SCREENING DIGITAL TOMOSYNTHESIS MAMMOGRAM WITH CAD HISTORY: SCREENING COMPARISON: 01/22/2022, 08/21/2020 Bilateral CC and MLO views with tomosynthesis and synthetic mammography submitted. Computer aided det ection analyzed. Breast composition: The breasts are heterogeneously dense, which may obscure small masses. No suspici ous masses, microcalcifications or architectural distortion. MM/[id number] IMPRESSION: BI-RADS: 1-Negative FOLLOW UP: 1 Year Follow-up
== END 2023-03-11 09:33 | disposition home or self-care (01) ==
PROVIDERS: PCP Nurse Practitioner Family; Visit Provider Registered Nurse
DX: Z12.31 Encounter for screening mammogram for malignant neoplasm of breast (principal)
CPT/HCPCS: 77063; 77067

== ENCOUNTER 2023-07-07 13:01 | Outpatient (CLI) | payer BC, SELFPAY ==
[2023-07-08 11:35] LABS: CENTROMERE B ANTIBODY <1.0 NEG AI (<1.0 NEG); JO-1 ANTIBODY <1.0 NEG AI (<1.0 NEG); RNP ANTIBODY <1.0 NEG AI (<1.0 NEG); SCL-70 ANTIBODY <1.0 NEG AI (<1.0 NEG); SJOGREN'S ANTIBODY (SS-A) <1.0 NEG AI (<1.0 NEG); SM ANTIBODY <1.0 NEG AI (<1.0 NEG); SS-B <1.0 NEG AI (<1.0 NEG)
[2023-07-08 13:13] LABS: COMPLEMENT, TOTAL (CH50) >60 U/mL (31-60)
[2023-07-08 14:59] LABS: COMPLEMENT COMPONENT C3C 170 mg/dL (83-193); COMPLEMENT COMPONENT C4C 27 mg/dL (15-57)
[2023-07-08 15:49] LABS: ANA SCREEN, IFA NEGATIVE (NEGATIVE)
[2023-07-09 07:19] LABS: THYROID PEROXIDASE ANTIBODIES <1 IU/mL (<9)
[2023-07-16 15:11] LABS: DNA AB (DS) CRITHIDIA,IFA NEGATIVE (NEGATIVE)
== END 2023-07-07 13:02 | disposition home or self-care (01) ==
PROVIDERS: PCP Registered Nurse; Visit Provider Nurse Practitioner Family
DX: L53.8 Other specified erythematous conditions (principal); D89.89 Other specified disorders involving the immune mechanism, not elsewhere classified; Z79.899 Other long term (current) drug therapy
CPT/HCPCS: 36415; 86160; 86162; 86235; 86255; 86376

== ENCOUNTER 2023-11-24 11:36 | Outpatient (CLI) | payer BC, SELFPAY ==
--- NOTE | 2023-11-24 | USCV_ITS ---
Candy Solitario Age: 53 Gender: F : 1970 Exam Date: 11/24/2023 12:25 Ordering Phys: Kirsty Arora Technologist: Gloria Adams [place]am [place] [facility] [place] Indication: CHEST PAIN PAIRED WITH STRESSS ECHO BP: / HR: 63 Rhythm: Sinus Technical Quality: Adequate MEASUREMENTS (Male / Female) Normal Values 2D ECHO LV Diastolic Diameter PLAX 4.1 cm 4.2 - 5.9 / 3.9 - 5.3 cm LV Systolic Diameter PLAX 2.7 cm LV Chamber Size 2.8 cm IVS Diastolic Thickness 0.6 cm 0.6 - 1.0 / 0.6 - 0.9 cm IVS Systolic Thickness 0.9 cm LVPW Diastolic Thickness 1.3 cm 0.6 - 1.0 / 0.6 - 0.9 cm LVPW Systolic Thickness 1.1 cm RV Chamber Size 2.4 cm LVOT Diameter 2.0 cm LV Ejection Fraction 2D Teich 50.8 % LV Ejection Fraction MOD 2C 56.0 % LV Ejection Fraction 2C AL 59.1 % LA Diameter 3.2 cm LA Width 3.1 cm LA Height 3.3 cm RA Width 2.9 cm RA Height 3.7 cm Aorta at Sinotubular Diameter 2.7 cm IVC Diameter 1.6 cm M-MODE Aortic Annulus Diameter 3.0 cm LA Ao Ratio MM 1.3 MV E Point Septal Separation 0.4 cm DOPPLER AV Peak Velocity 162.7 cm/s LVOT Peak Velocity 105.3 cm/s AV Area Cont Eq vti 2.1 cm squared AV Area Cont Eq pk 2.0 cm squared MV Area PHT 3.3 cm squared Mitral E to A Ratio 1.1 MV E' Velocity 56.5 cm/s Mitral E to MV E' Ratio 11.7 Mitral E to LV E' Lateral Ratio 9.9 Mitral E to LV E' Septal Ratio 14.5 TR Peak Velocity 156.3 cm/s TR Peak Gradient 9.8 mmHg TR Mean Velocity 141.1 cm/s TR Mean Gradient 10.3 mmHg TR Velocity Time Integral 57.6 cm RV Acceleration Time 0.2 s RV Ejection Time 0.4 s RV AcT/ET 0.4 FINDINGS Left Ventricle Left ventricle is normal in size. LV systolic function is normal with EF of 55 to 60%. No regional abnormalities are seen. Right Ventricle Normal in size and function Right Atrium Normal in size Left Atrium Normal in size Mitral Valve Structurally normal mitral valve. Mild mitral regurgitation. Aortic Valve Structurally normal aortic valve. No significant stenosis or regurgitation. Tricuspid Valve Mild mitral regurgitation. Pulmonary artery systolic pressure is normal. Pulmonic Valve Not well-visualized Pericardium Normal Aorta Normal in size IVC Appears to be normal CONCLUSIONS LV systolic function is normal with EF of 55-60% Mild mitral regurgitation Mild mitral regurgitation No comparison studies are available. Nirmal Akers MD (Electronically Signed) Final Date: 27 November 2023 17:53 S
[2023-11-24 11:46] VITALS: BMI 32.0
--- NOTE | 2023-11-24 11:48 | ECG_ITS ---
[facility] Test Date: 2023-11-24 Pat Name: Candy Solitario Department: Room: Gender: Female Rn Travel: : 1970 Requested By: Kirsty Arora Order Number: [id number] Buck MD: Nirmal Akers M.D. Interpretive Statements NAME OF STUDY: TREADMILL STRESS TEST INDICATION: [Chest Pain] EXERCISE DATA: The patient was exercised by Keven protocol. Baseline heart rate was 54 beats per minute. Baseline blood pressure was 127/84 millimeters of mercury. Target heart rate was 142 beats per minute. Maximum heart rate achieved was 121 which was 85% of the target heart rate and 72% of maximal predicted heart rate. Maximum blood pressure was 156/59 millimeters of mercury. Total exercise time was 4 minutes 10 seconds. Maximum METs achieved was 7. The reason for ending the test was maximal effort obtained with significant shortness of breath and chest discomfort. ELECTROCARDIOGRAM: BASELINE: Showed sinus rhythm, normal axis, no significant ST-T changes at the baseline noted. [] EXERCISE: At exercise, significant artifact ruled out meaningful interpretation. However the rhythm strips that are interpretable do not show significant ST-T wave changes. RECOVERY: During the recovery period, heart rate dropped appropriately. No significant ST-T changes in the recovery suggestive of ischemia noted. [] CONCLUSION: 1. Exercise capacity is poor 2. Heart rate response was suboptimal. 3. Blood pressure response was appropriate. 4. Symptoms of chest pain, shortness of breath limited completion of protocol. 5. Stress test is indeterminate because target heart rate was not achieved as patient could only reach 72% of maximal predicted heart rate. Alternative stress test suggested to rule out ischemia. Electronically Signed On 11-29-2023 12:54:04 THERAPY MANAGER by Nirmal Akers M.D. [id number]
[2023-11-24 12:14] VITALS: BP 114/73; PULSE 80
== END 2023-11-24 11:37 | disposition home or self-care (01) ==
PROVIDERS: PCP Registered Nurse; Visit Provider Registered Nurse
DX: R07.9 Chest pain, unspecified (principal); R79.89 Other specified abnormal findings of blood chemistry; I34.0 Nonrheumatic mitral (valve) insufficiency
CPT/HCPCS: 93017; 93306

== ENCOUNTER 2023-12-23 09:11 | Outpatient (CLI) | payer BC, SELFPAY ==
--- NOTE | 2023-12-23 | ECG_ITS ---
[facility] Test Date: 2023-12-23 Pat Name: Candy Solitario Department: Room: Gender: Female It Senior Analyst: : 1970 Requested By: Kirsty Arora Order Number: [id number] Cielo MD: Nrimal Akers M.D. Interpretive Statements NAME OF STUDY: LEXISCAN SESTAMIBI STRESS TEST INDICATION: [CP] Procedure: At the baseline, the blood pressure was 120/78 mmHg with a heart rate of 55 bpm. The electrocardiogram showed sinus bradycardia, normal axis with normal ST and T's. The Lexiscan was infused over a period of 20 seconds. A total of 0.4 mg of Lexiscan was infused. The stress phase was continued for a total of 5 minutes. Heart rate was at the end of stress phase was 78 bpm and a blood pressure of 130/72 mmHg. The EKG at the peak infusion revealed normal sinus rhythm with no significant ST-T wave changes. Sestamibi was injected 20 seconds after the Lexiscan infusion. Blood pressure at the end of recovery phase was 124/73 mmHg with a heart rate of 77 bpm. Conclusion: 1. Normal EKG response to Lexiscan infusion 2. No Lexiscan induced chest pain or cardiac arrhythmia. 3. Normal blood pressure and heart rate response. 4. Sestamibi/sestamibi perfusion scan pending; see separate report. Electronically Signed On 01-07-2024 10:25:05 CDT by Nirmal Akers M.D. [id number]
[2023-12-23 09:31] VITALS: BMI 27.5
--- NOTE | 2023-12-23 09:32 | NMCV_ITS ---
NM camacho perf SPECT r/s* [id number] Candy Solitario Age: 53 Gender: F : 1970 Exam Date: 12/23/2023 10:11 Ordering Phys: Kirsty Arora Technologist: FATMATA Saha Exam Location: [facility] Indications: CHEST PAIN STRESS TEST Please see separate stress test report in [facility] for full findings IMAGE PROTOCOL Rest/Stress 1 Lexiscan Day Radiopharmaceutical Dose (mCi) Administration Site Administered by Rest: Tc-99m 10.2 IV FATMATA Zaragoza Sestamibi Stress:Tc-99m 32.7 IV FATMATA Saha Sestamiradha Rest: 23-Dec-2023 60 Discovery 630 Stress: 23-Dec-2023 30 Discovery 630 0.4mg Lexiscan. Images obtained in supine and prone position. SPECT RESULTS Technical Quality: Excellent Raw Data Analysis: Normal Image Corrections: No attenuation or motion correction applied Summed Stress Score: 2 Summed Rest Score: 2 Summed Difference Score: 0 PERFUSION FINDINGS SPECT images demonstrate homogeneous tracer distribution throughout the myocardium. FUNCTIONAL RESULTS (calculated via Gated SPECT) Stress Image LV EF (%): 77 Stress EDV (mL):81 TID: 1.18 Stress ESV (mL):19 FUNCTIONAL FINDINGS: There is normal left ventricular systolic function. IMPRESSIONS 1. Normal myocardial perfusion imaging with no evidence of ischemia 2. LV systolic function is normal Nirmal Akers MD (Electronically Signed) Final Date: 23 December 2023 13:40 S
[2023-12-23] MEDS: regadenoson 0.4 Mg/5 ml Syringe 0.400000000000000022 MG IVP (10:51)
[2023-12-23 11:04] VITALS: BP 124/73; PULSE 77
== END 2023-12-23 09:12 | disposition home or self-care (01) ==
PROVIDERS: PCP Registered Nurse; Visit Provider Registered Nurse
DX: R07.9 Chest pain, unspecified (principal)
CPT/HCPCS: 36415; 78452; 93017; 96374; A9500; J2785

== ENCOUNTER → 2024-01-19 08:29 | Outpatient (BNVA) | payer BC, SELFPAY | PROVIDERS: PCP Registered Nurse; Referring Provider Registered Nurse; Visit Provider Orthopaedic Surgery | DX: M54.2 Cervicalgia (principal) | CPT/HCPCS: 72050 ==

== ENCOUNTER → 2024-01-26 10:27 | Outpatient (BNVA) | payer BC, SELFPAY | PROVIDERS: PCP Registered Nurse; Referring Provider Registered Nurse; Visit Provider Student in an Organized Health Care Education/Training Program | DX: M79.641 Pain in right hand (principal); R22.31 Localized swelling, mass and lump, right upper limb | CPT/HCPCS: 73130 ==

== ENCOUNTER → 2024-03-22 14:32 | Outpatient (BNVA) | payer BC, SELFPAY | PROVIDERS: PCP Registered Nurse; Visit Provider Orthopaedic Surgery | DX: M54.2 Cervicalgia (principal); E11.9 Type 2 diabetes mellitus without complications; M47.22 Other spondylosis with radiculopathy, cervical region; Z79.899 Other long term (current) drug therapy | CPT/HCPCS: 80053; 81003; 83036; 85025 ==

== ENCOUNTER → 2024-04-13 09:19 | Outpatient (BNVA) | payer BC, SELFPAY | PROVIDERS: PCP Registered Nurse; Visit Provider Family Medicine | DX: Z01.818 Encounter for other preprocedural examination (principal) | CPT/HCPCS: 80048; 81003; 85025; 93005 ==